=== PATIENT | female | born 2005 | race Two or more races ===

== ENCOUNTER 2024-06-22 02:13 | Emergency (ER) | payer SELFPAY ==
[~2024-06-22] VITALS: Ht 170.2 cm; Wt 53.2 kg
[2024-06-22 02:20] VITALS: BP 115/90; PULSE 123; RESP 18; O2SAT 98
[2024-06-22] MEDS ORDERED: IBUP-1454 PO (02:36)
[2024-06-22] MEDS ORDERED: SILV1CRE82 TOP (02:36)
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
[2024-06-22] MEDS: IBUPROFEN 600 MG TAB PO ONE (02:43)
[2024-06-22] MEDS: SILVER SULFADIAZINE 1 % TOPICAL CREAM 50GM TOP ONE (02:43)
== END 2024-06-22 03:19 | disposition home or self-care (01) ==
LOC: ER 02:13
DX: T20.20XA Burn of second degree of head, face, and neck, unspecified site, initial encounter (principal); T23.202A Burn of second degree of left hand, unspecified site, initial encounter; T23.201A Burn of second degree of right hand, unspecified site, initial encounter; X08.8XXA Exposure to other specified smoke, fire and flames, initial encounter; Y93.89 Activity, other specified; Y92.89 Other specified places as the place of occurrence of the external cause; Y99.8 Other external cause status
CPT/HCPCS: 16000